=== PATIENT | male | born 1970 | race Caucasian/White ===

== ENCOUNTER 2021-04-08 19:47 | Emergency (ER) | payer OTHER ==
[2021-04-08] MEDS ORDERED: Famotidine 20 MG Tab PO ONE (20:56)
[2021-04-08] MEDS ORDERED: Pantoprazole 80 MG in Sodium Chloride 0.9% 20 ML IVPUSH ONE (20:57)
[2021-04-08 21:58] LABS: BLOOD UREA NITROGEN,BUN 14 mg/dL (7.0-18.0); CARBON DIOXIDE,CO2 23.7 mmol/L (21.0-32.0); CHLORIDE,CL 101 mmol/L (98-107); GLUCOSE RANDOM 105 mg/dL (74-106); POTASSIUM,K 3.6 mmol/L (3.5-5.1); SODIUM,NA 137 mmol/L (136-148)
[2021-04-08] MEDS ORDERED: Iopamidol 755 MG/ML 500 ML Multipack Bottle IVPUSH STA (22:43)
--- NOTE | 2021-04-08 23:29 | CT ---
INDICATION: Hematochezia. COMPARISON: None. TECHNIQUE: Routine axial CT images of the abdomen and pelvis following the uneventful administration of IV contrast. Sagittal and coronal reformatted series were also generated and reviewed. - Total exam DLP 613 mGy-cm. FINDINGS: The lower chest is unremarkable. - The liver, gallbladder, pancreas, spleen and adrenal glands are unremarkable. Symmetric enhancement of the kidneys. No hydronephrosis. Normal caliber aorta. No suspicious abdominal or pelvic lymphadenopathy. - No bowel obstruction or ascites. The appendix is normal. Few scattered colonic diverticula. No focal inflammatory change, perforation or abscess. - Urinary bladder is partially distended, but otherwise unremarkable. Prostate seminal vesicles are within normal limits. No pelvic mass or free fluid. - Degenerative disc disease at L5-S1, to a lesser extent L4-5. No acute or aggressive osseous findings. IMPRESSION: 1. No acute findings in the abdomen or pelvis. No specific CT abnormality to explain the patient`s reported symptoms. 2. Given the provided history, recommend follow-up colonoscopy. 3. Other findings, as above. Dictated by Kal Robledo MD @ 04/08/2021 11:27:31 PM Please note that all CT scans at this facility use dose modulation, iterative reconstruction, and/or weight-based dosing when appropriate to reduce radiation dose to as low as reasonably achievable. Dictated by: Kal Robledo MD @ 04/08/2021 23:27:40 (Electronically Signed)
--- NOTE | 2021-04-09 00:21 | EDM.PDOC ---
ED HPI GENERAL MEDICAL PROBLEM - General Chief Complaint: Gastrointestinal Problem Stated Complaint: BLOODY STOOL Time Seen by Provider: 04/08/21 20:58 - History of Present Illness INITIAL COMMENTS - FREE TEXT/NARRATIVE: CHIEF COMPLAINT(S): Bloody stool HISTORY OF PRESENT ILLNESS: This is a 62-year-old man with a past medical history of hypertension and tobacco use disorder with a [id number] history who comes to the emergency department with a chief complaint of bloody stool. The patient states that off-and-on for the last 4 years he has been experiencing bloody stool. He states that for the last 3 days he has been experiencing bloody stool which she describes as bright red. He states that there was some mild darkness but it is never been black. He states that he feels mildly dizzy but denies any chest pain or shortness of breath. He denies any abdominal pain but states that he always has chronic lower back pain. He denies any history of hemorrhoids and has never had a colonoscopy before. He states that he has never been evaluated for his bleeding because it seems to stop on its own. He denies any weight loss or night sweats. He denies any other symptoms. REVIEW OF SYSTEMS: Constitutional: Denies fever, chills. Eyes: Denies eye pain Ears, Nose, Mouth, & Throat: Denies earache Cardiovascular: Denies chest pain Respiratory: Denies shortness of breath Gastrointestinal: Positive for bright red bloody stool. Denies Nausea, vomiting, diarrhea, melena Genitourinary: Denies hematuria Skin:Denies a rash MSK: Positive for chronic lower back pain Neurological: Denies blurred vision Psychiatric: Denies depression PAST MEDICAL HISTORY: As per history of present illness and as reviewed below otherwise noncontributory. SURGICAL HISTORY: As per history of present illness and as reviewed below otherwise noncontributory. SOCIAL HISTORY: As per history of present illness and as reviewed below otherwise noncontributory. FAMILY HISTORY: As per history of present illness and as reviewed below otherwise noncontributory. EXAMINATION OF ORGAN SYSTEMS/BODY AREAS: Constitutional: Blood pressure is 137/85, heart rate 91, respiratory rate 18 with an oxygen saturation of 97% on room air. Temperature 36.9 General: Well-appearing man who is in no acute distress Psychiatric: Appropriate mood and affect. Eyes: No scleral icterus or conjunctival erythema ENMT: Moist mucous membranes. No pharyngeal erythema Cardiovascular: Regular, rate, and rhythm. No gallops, murmurs, or rubs. Bilateral upper extremity pulses symmetric and intact. No peripheral edema. No JVD. Respiratory: Lungs clear to auscultation bilaterally. No wheezes, rales, or rhonchi. Gastrointestinal: Soft, non-tender, non-distended. Normoactive bowel sounds no rebound or guarding. Rectal examination was performed with RN node js developer in presence. There was no evidence of every hemorrhoids or hemorrhoidal bleeding. Stool was brown and guaiac negative. Genitourinary: No suprapubic tenderness Musculoskeletal: Normal range of motion. Skin: No lesions or abrasions. Neurological: Alert, GCS 15 MEDICAL DECISION MAKING AND COURSE IN THE ED WITH INTERPRETATION/REVIEW OF DIAGNOSTIC STUDIES: This is a 50-year-old man without any significant past medical history other than hypertension and tobacco use disorder who comes to the emergency department with intermittent bright red bloody stool for the last 4 years which has been going on for the last 3 days who has no evidence of blood in his stool at this time with normal vital signs. At this time given his history will obtain labs including CBC, CMP, coags. Will obtain a CT abdomen pelvis to evaluate for diverticular bleeding versus diverticulitis. I did have a discussion with the patient that if our work-up was negative he would need to follow-up with a general surgeon to perform a colonoscopy. He was amenable to this plan. I did provide the patient with pantoprazole and famotidine. Laboratory: CBC reveals a leukocytosis of 12.42 otherwise unremarkable. INR is normal. CMP is normal. Covid is negative. The radiological images were viewed by myself along with reading the report from the radiologist. CT abdomen pelvis does not reveal any acute intra-abdominal pathology. There is evidence of diverticuli without any evidence of diverticulitis. After imaging I did discuss results with the patient. At this time I do believe he is likely having intermittent diverticular bleeding however he currently does not have any guaiac positive stool his stool is brown and not bright red and I do believe the patient is stable for discharge. I did discuss with the patient the need to follow-up for a colonoscopy given his recurrent bleeding. He was amenable discharge at this time and had no further questions. He was given strict return precautions DISPOSITION: The patient was discharged home in stable condition. The patient will follow up with general surgery within 3 to 5 days for colonoscopy scheduling CONDITION: Fair PROCEDURES: None FINAL IMPRESSION(S)/DIAGNOSES: 1. Acute bloody stool José Wisdom M.D. Bilateral Back Pain Score (Numeric/FACES): 2 - Related Data Allergies Allergy/AdvReac Type Severity Reaction Status Date / Time Sulfa (Sulfonamide Allergy Severe Swelling Verified 04/08/21 20:16 Antibiotics) Home Meds: Home Meds amLODIPine Bes/Olmesartan Med [Karl 10-40 MG] 04/08/21 [History] Past Medical History - Past Health History Medical/Surgical History: Denies Medical/Surgical History - Infectious Disease History Infectious Disease History: Reports: Chicken Pox, MRSA Social & Family History - Family History GI: Reports: Other (See Below) Other GI Family History: Fissures - Tobacco Use Tobacco Use Status *Q: Current Every Day Tobacco User Years of Tobacco use: 37 Packs/Tins Daily: 1 - Caffeine Use Caffeine Use: Reports: Coffee - Recreational Drug Use Recreational Drug Use: No ED ROS GENERAL - Review of Systems Review Of Systems: See Below ED EXAM, GENERAL - Physical Exam Exam: See Below Course - Vital Signs Last Recorded V/S: Last Vital Signs Temp 36.9 C 04/08/21 20:17 Pulse 84 04/09/21 00:18 Resp 17 04/09/21 00:18 BP 133/79 04/09/21 00:18 Pulse Ox 96 04/09/21 00:18 - Orders/Labs/Meds Labs: Laboratory Tests 04/08/21 04/08/21 04/08/21 Range/Units 21:20 21:20 21:20 WBC 12.42 H (4.0-11.0) K/uL RBC 4.77 (4.50-5.90) M/uL Hgb 15.6 (13.0-17.0) g/dL Hct 44.6 (38.0-50.0) % MCV 93.5 (80.0-98.0) fL MCH 32.7 H (27.0-32.0) pg MCHC 35.0 (31.0-37.0) g/dL RDW Std Deviation 44.1 (28.0-62.0) fl RDW Coeff of Isabella 13 (11.0-15.0) % Plt Count 255 (150-400) K/uL MPV 9.80 (7.40-12.00) fL Neut % (Auto) 49.5 (48.0-80.0) % Lymph % (Auto) 39.8 (16.0-40.0) % [place] % (Auto) 8.9 (0.0-15.0) % Eos % (Auto) 1.5 (0.0-7.0) % Baso % (Auto) 0.3 (0.0-1.5) % Neut # (Auto) 6.2 H (1.4-5.7) K/uL Lymph # (Auto) 4.9 H (0.6-2.4) K/uL [place] # (Auto) 1.1 H (0.0-0.8) K/uL Eos # (Auto) 0.2 (0.0-0.7) K/uL Baso # (Auto) 0.0 (0.0-0.1) K/uL Nucleated RBC % 0.0 /100WBC Nucleated RBCs # 0 K/uL INR 0.94 Sodium (136-148) mmol/L Potassium (3.5-5.1) mmol/L Chloride (98-107) mmol/L Carbon Dioxide (21.0-32.0) mmol/L BUN (7.0-18.0) mg/dL Creatinine (0.8-1.3) mg/dL Est Cr Clr Drug Dosing mL/min Estimated GFR (MDRD) ml/min Glucose (74-106) mg/dL Calcium (8.5-10.1) mg/dL Total Bilirubin (0.2-1.0) mg/dL AST (15-37) IU/L ALT (14-63) IU/L Alkaline Phosphatase (46-116) U/L Total Protein (6.4-8.2) g/dL Albumin (3.4-5.0) g/dL Globulin (2.6-4.0) g/dL Albumin/Globulin Ratio (0.9-1.6) SARS-CoV-2 RNA (LIDYA) NEGATIVE (NEGATIVE) Blood Type Antibody Screen 04/08/21 04/08/21 Range/Units 21:20 21:44 WBC (4.0-11.0) K/uL RBC (4.50-5.90) M/uL Hgb (13.0-17.0) g/dL Hct (38.0-50.0) % MCV (80.0-98.0) fL MCH (27.0-32.0) pg MCHC (31.0-37.0) g/dL RDW Std Deviation (28.0-62.0) fl RDW Coeff of Isabella (11.0-15.0) % Plt Count (150-400) K/uL MPV (7.40-12.00) fL Neut % (Auto) (48.0-80.0) % Lymph % (Auto) (16.0-40.0) % [place] % (Auto) (0.0-15.0) % Eos % (Auto) (0.0-7.0) % Baso % (Auto) (0.0-1.5) % Neut # (Auto) (1.4-5.7) K/uL Lymph # (Auto) (0.6-2.4) K/uL [place] # (Auto) (0.0-0.8) K/uL Eos # (Auto) (0.0-0.7) K/uL Baso # (Auto) (0.0-0.1) K/uL Nucleated RBC % /100WBC Nucleated RBCs # K/uL INR Sodium 137 (136-148) mmol/L Potassium 3.6 (3.5-5.1) mmol/L Chloride 101 (98-107) mmol/L Carbon Dioxide 23.7 (21.0-32.0) mmol/L BUN 14 (7.0-18.0) mg/dL Creatinine 1.0 (0.8-1.3) mg/dL Est Cr Clr Drug Dosing 92.26 mL/min Estimated GFR (MDRD) > 60.0 ml/min Glucose 105 (74-106) mg/dL Calcium 8.9 (8.5-10.1) mg/dL Total Bilirubin 0.7 (0.2-1.0) mg/dL AST 20 (15-37) IU/L ALT 30 (14-63) IU/L Alkaline Phosphatase 81 (46-116) U/L Total Protein 7.8 (6.4-8.2) g/dL Albumin 4.2 (3.4-5.0) g/dL Globulin 3.6 (2.6-4.0) g/dL Albumin/Globulin Ratio 1.2 (0.9-1.6) SARS-CoV-2 RNA (LIDYA) (NEGATIVE) Blood Type O POSITIVE Antibody Screen NEGATIVE Meds: Medications Discontinued Medications Generic Name Dose Route Start Last Admin Trade Name Freq PRN Reason Stop Dose Admin Famotidine 20 mg 04/08/21 20:56 04/08/21 21:25 Famotidine 20 Mg Tab PO 04/08/21 20:57 20 mg ONETIME ONE Administration Pantoprazole Sodium 80 mg/ 20 mls @ 420 mls/hr 04/08/21 20:57 04/08/21 21:25 Sodium Chloride IVPUSH 04/08/21 20:59 420 mls/hr ONETIME ONE Administration Iopamidol 100 ml 04/08/21 22:43 04/08/21 22:44 Iopamidol 755 Mg/Ml 500 Ml Multipack Bottle IVPUSH 04/08/21 22:44 100 ml ONETIME STA Administration Departure - Departure Time of Disposition: 00:19 Disposition: Home, Self-Care 01 Condition: Fair Clinical Impression: Bloody stool - Discharge Information *PRESCRIPTION DRUG MONITORING PROGRAM REVIEWED*: No *COPY OF PRESCRIPTION DRUG MONITORING REPORT IN PATIENT AXEL: No Instructions: Gastrointestinal Bleeding, Diverticulosis Referrals: Michael Swartz MD [Primary Care Provider] - Forms: ED Department Discharge Additional Instructions: You were evaluated today on an emergent basis. At this time all of your labs and imaging were essentially normal. You do have evidence of diverticulum in your colon. I do recommend that you contact general surgery or primary care physician to schedule an outpatient colonoscopy. As discussed if you have any pain, fever, worsening bleeding I would like you to return to the emergency department. [facility] - General Surgery Professional Building [address] [place] [address], [address] [place] [address] [facility] [address] [place] [id number] [id number] The patient is informed of any results of their evaluation and diagnostic workup and all questions are answered. They are given discharge instructions and return precautions. The patient is stable for discharge. The patient states they understand and agree with the plan and that they will return if their symptoms get worse or if they have any new concerns. The following information is given to patients seen in the emergency department who are being discharged to home. This information is to outline your options for follow-up care. We provide all patients seen in our emergency department with a follow-up referral. The need for follow-up, as well as the timing and circumstances, are variable depending upon the specifics of your emergency department visit. If you don't have a primary care physician on staff, we will provide you with a referral. We always advise you to contact your personal physician following an emergency department visit to inform them of the circumstance of the visit and for follow-up with them and/or the need for any referrals to a consulting specialist. The emergency department will also refer you to a specialist when appropriate. This referral assures that you have the opportunity for follow-up care with a specialist. All of these measure are taken in an effort to provide you with optimal care, which includes your follow-up. Under all circumstances we always encourage you to contact your private physician who remains a resource for coordinating your care. When calling for follow-up care, please make the office aware that this follow-up is from your recent emergency room visit. If for any reason you are refused follow-up, please contact the [facility] Emergency Department at and asked to speak to the emergency department charge nurse. Sepsis Event Note (ED) - Evaluation Sepsis Screening Result: No Definite Risk
== END 2021-04-09 00:31 | disposition home or self-care (01) ==
LOC: MW.ED 19:47
DX: K92.1 Melena (principal); Z72.0 Tobacco use; Z88.2 Allergy status to sulfonamides; Z20.822 Contact with and (suspected) exposure to COVID-19
CPT/HCPCS: 36415; 74177; 80053; 85025; 85610; 86850; 86900; 86901; 87635; 96374; 99285; A9270; C9113; Q9967; U0002

== ENCOUNTER 2021-05-02 10:47 | Day surgery (SDC) | payer OTHER ==
[~2021-05-02 10:47] MED LIST: Lactated Ringers 1,000 ML IV SCH
--- NOTE | 2021-05-02 11:52 | PCM.PREANE ---
Preanesthetic Assessment - Anesthesia/Transfusion/Family Hx Anesthesia History: Prior Anesthesia Without Reaction Transfusion History: No Prior Transfusion(s) - Review of Systems General: No Symptoms Pulmonary: No Symptoms Cardiovascular: No Symptoms Gastrointestinal: No Symptoms Neurological: No Symptoms Other: Reports: None - Physical Assessment NPO Status Date: 05/02/21 NPO Status Time: 00:00 Vital Signs: Last Vital Signs Temp 97.2 F 05/02/21 11:03 Pulse 84 05/02/21 11:03 Resp 14 05/02/21 11:03 BP 135/86 05/02/21 11:03 Pulse Ox 97 05/02/21 11:03 Height: 5 ft 10 in Weight: 209 lb ASA Class: 3 Mental Status: Alert & Oriented x3 Airway Class: Mallampati = 2 Dentition: Reports: Normal Dentition Thyro-Mental Finger Breadths: 3 Mouth Opening Finger Breadths: 3 ROM/Head Extension: Full Lungs: Clear to Auscultation, Normal Respiratory Effort Cardiovascular: Regular Rate, Regular Rhythm - Allergies Allergies/Adverse Reactions: Allergies Allergy/AdvReac Type Severity Reaction Status Date / Time Sulfa (Sulfonamide Allergy Severe Swelling Verified 04/26/21 08:30 Antibiotics) - Acknowledgements Anesthesia Type Planned: General Anesthesia Pt an Appropriate Candidate for the Planned Anesthesia: Yes Alternatives and Risks of Anesthesia Discussed w Pt/Guardian: Yes Pt/Guardian Understands and Agrees with Anesthesia Plan: Yes PreAnesthesia Questionnaire - Past Health History Medical/Surgical History: Denies Medical/Surgical History HEENT History: Reports: None Cardiovascular History: Reports: Hypertension Respiratory History: Reports: Sleep Apnea Other Respiratory History: does not use a CPAP Gastrointestinal History: Reports: Hiatal Hernia, Other (See Below) Other Gastrointestinal History: rectal bleeding Genitourinary History: Reports: None Musculoskeletal History: Reports: Arthritis, Back Pain, Chronic, Fracture Other Musculoskeletal History: hx fx fingers, collarbone & foot Neurological History: Reports: None Psychiatric History: Reports: None Endocrine/Metabolic History: Reports: Obesity/BMI 30+ Hematologic History: Reports: None Immunologic History: Reports: Other (See Below) Other Immunologic History: hx MRSA 8 to 10 years ago Oncologic (Cancer) History: Reports: None Dermatologic History: Reports: None - Infectious Disease History Infectious Disease History: Reports: MRSA Other Infectious Disease History: states had MRSA 8 to 10 years ago from cut on hand - Past Surgical History Head Surgeries/Procedures: Reports: None HEENT Surgical History: Reports: Other (See Below) Other HEENT Surgeries/Procedures: uvulectomy Cardiovascular Surgical History: Reports: None Respiratory Surgical History: Reports: None GI Surgical History: Reports: Ivanna Fundoplication Other GI Surgeries/Procedures: hx of laparoscopic ivanna fundoplication Male Surgical History: Reports: None Endocrine Surgical History: Reports: None Neurological Surgical History: Reports: None Musculoskeletal Surgical History: Reports: Arthroscopic Knee, Shoulder Surgery Other Musculoskeletal Surgeries/Procedures:: hx Lt RTCR Oncologic Surgical History: Reports: None Dermatological Surgical History: Reports: None - SUBSTANCE USE Tobacco Use Status *Q: Current Every Day Tobacco User Tobacco Use Within Last Twelve Months: Cigarettes - HOME MEDS Home Medications: Home Meds amLODIPine Besylate [Amlodipine Besylate] 10 mg PO DAILY 04/26/21 [History] - CURRENT (IN HOUSE) MEDS Current Meds: Current Medications Lactated Ringer's (Ringers, Lactated) 1,000 mls @ 125 mls/hr IV ASDIRECTED [facility] Last Admin: 05/02/21 11:10 Dose: 125 mls/hr Documented by:
[2021-05-02] MEDS ORDERED: fentaNYL 100 MCG/2 ML SDV ONE (12:28)
[2021-05-02] MEDS ORDERED: Propofol 200 MG/20 ML SDV ONE (12:39)
--- NOTE | 2021-05-02 13:24 | PCM.OPNOTE ---
- General Post-Op/Procedure Note Date of Surgery/Procedure: 05/02/21 Operative Procedure(s): Colonoscopy with cold sigmoid colon polypectomy 3. Pre Op Diagnosis: Rectal bleeding. CT diagnosis of diverticulosis. Post-Op Diagnosis: Proximal, mid and distal sigmoid colon polyps. No acute diverticular changes were noted on examination today. Anesthesia Technique: MAC (ASA III) Primary Surgeon: Josafat Rosas Condition: Good Free Text/Narrative:: DICTATION [id number] CPT CODE [id number]
--- NOTE | 2021-05-02 13:28 | PCM48HPAN ---
Post Anesthesia Note - EVALUATION WITHIN 48HRS OF ANESTHETIC Patient Participated in Evaluation: Yes Respiratory Function Stable: Yes Airway Patent: Yes Cardiovascular Function Stable: Yes Hydration Status Stable: Yes Pain Control Satisfactory: Yes Nausea and Vomiting Control Satisfactory: Yes Mental Status Recovered: Yes Vital Signs: Last Vital Signs Temp 97.2 F 05/02/21 11:03 Pulse 84 05/02/21 11:03 Resp 14 05/02/21 11:03 BP 135/86 05/02/21 11:03 Pulse Ox 97 05/02/21 11:03
--- NOTE | 2021-05-02 13:28 | PCM.POSTAN ---
POST ANESTHESIA ASSESSMENT - MENTAL STATUS Mental Status: Alert, Oriented - VITAL SIGNS Vital Signs: Last Vital Signs Temp 97.2 F 05/02/21 11:03 Pulse 84 05/02/21 11:03 Resp 14 05/02/21 11:03 BP 135/86 05/02/21 11:03 Pulse Ox 97 05/02/21 11:03 - RESPIRATORY Respiratory Status: Respiratory Rate WNL, Airway Patent, O2 Saturation Stable - CARDIOVASCULAR CV Status: Pulse Rate WNL, Blood Pressure Stable - GASTROINTESTINAL GI Status: No Symptoms - POST OP HYDRATION Hydration Status: Adequate & Stable
[2021-05-02] MEDS ORDERED: Lactated Ringers 1,000 ML IV SCH (13:30)
--- NOTE | 2021-05-02 14:53 | OR ---
SURGEON: Josafat Rosas M.D. DATE OF PROCEDURE: 05/02/2021 OPERATION PERFORMED: Colonoscopy with cold sigmoid colon polypectomy x3. PRIMARY SURGEON: Josafat Rosas M.D. ANESTHESIA: MAC. ASA CLASSIFICATION: III. PREOPERATIVE DIAGNOSES: 1. Recent episode of rectal bleeding. 2. CT diagnosis of sigmoid diverticulosis. POSTOPERATIVE DIAGNOSIS: Sigmoid polyps x3 with 1 polyp from the proximal sigmoid colon, 1 from the mid and 1 from the distal. No acute diverticular changes were noted. DESCRIPTION OF PROCEDURE: The patient was taken to the endoscopy room and positioned on the endoscopy table in the left lateral decubitus position. Time-out was called for appropriate identification of the patient and procedure. Monitored anesthesia care was provided. The colonoscope was inserted into the rectum and advanced with minimal difficulty to the cecum. The cecum was identified by internal landmarks and external pressure. The colonoscope was retroflexed to visualize the ascending colon from below, then straightened and slowly withdrawn. The cecum, ascending colon, hepatic flexure, transverse colon, splenic flexure, and descending colon showed no tumors, polyps, diverticula, or angiodysplastic changes. The patient did have 3 small polyps in the sigmoid colon, 1 proximally, 1 mid, and 1 distal. These were all removed and sent for separate histologic analysis. No acute diverticular changes were noted. There was no evidence of inflammation or other rectal bleeding. The colonoscope was then withdrawn to the rectum and retroflexed to visualize the anal orifice from above. No tumors or polyps were seen and there were no acute hemorrhoidal changes. The colonoscope was then straightened, the rectum aspirated, and the colonoscope removed. The patient tolerated the procedure well and was taken to recovery room in satisfactory condition. ERIKA / KEITH /[id number]
== END 2021-05-02 13:57 | disposition home or self-care (01) ==
LOC: MW.SDS 10:47
PROVIDERS: ATTEND Surgery
DX: K63.5 Polyp of colon (principal); K57.31 Diverticulosis of large intestine without perforation or abscess with bleeding; I10 Essential (primary) hypertension; F17.210 Nicotine dependence, cigarettes, uncomplicated; E66.9 Obesity, unspecified; Z88.2 Allergy status to sulfonamides; Z79.899 Other long term (current) drug therapy; Z98.890 Other specified postprocedural states; Z68.30 Body mass index [BMI] 30.0-30.9, adult
CPT/HCPCS: 45380; J2704; J3010; J7120; 00812

== ENCOUNTER 2022-11-24 12:13 | Emergency (ER) | payer OTHER | END 2022-11-24 14:13 | disposition home or self-care (01) | LOC: MW.ED 12:13 | DX: S63.502A Unspecified sprain of left wrist, initial encounter (principal); I10 Essential (primary) hypertension; F17.210 Nicotine dependence, cigarettes, uncomplicated; E66.9 Obesity, unspecified; Z68.31 Body mass index [BMI] 31.0-31.9, adult; Z88.2 Allergy status to sulfonamides; Z79.899 Other long term (current) drug therapy; V00.121A Fall from non-in-line roller-skates, initial encounter; Y93.51 Activity, roller skating (inline) and skateboarding | CPT/HCPCS: 73110-26-LT; 73110-LT; 73130-26-LT; 73130-LT; 99283; 99284 ==

== ENCOUNTER 2023-08-25 13:58 | Emergency (ER) | payer OTHER | END 2023-08-25 14:28 | disposition home or self-care (01) | LOC: MW.ED 13:58 | DX: L03.211 Cellulitis of face (principal); L02.01 Cutaneous abscess of face; I10 Essential (primary) hypertension; F17.210 Nicotine dependence, cigarettes, uncomplicated; E66.9 Obesity, unspecified; Z86.16 Personal history of COVID-19; Z79.899 Other long term (current) drug therapy; Z88.2 Allergy status to sulfonamides; Z68.31 Body mass index [BMI] 31.0-31.9, adult | CPT/HCPCS: 10060; 99283; 99283-25 ==

== ENCOUNTER 2024-07-16 07:50 | Day surgery (SDC) | payer BC ==
[~2024-07-16 07:50] MED LIST changes: +Albuterol 0.083% 2.5 MG/3 ML Neb Soln NEB PRN; +HYDROmorphone 1 MG/ML Syringe IVPUSH PRN; -Lactated Ringers 1,000 ML IV SCH; +Metoclopramide 10 MG/2 ML SDV IVPUSH PRN; +Morphine 2 MG/ML SYRINGE IVPUSH PRN; +Naloxone 0.4 MG/ML SDV IVPUSH PRN; +Ondansetron 4 MG/2 ML SDV IVPUSH PRN; +Phenylephrine HCl In 0.9% NaCl 1 MG/10 ML Syringe IVPUSH PRN; +fentaNYL 50 MCG/ML SDV IVPUSH PRN
[2024-07-16] MEDS ORDERED: ceFAZolin 2 GM in Sodium Chloride 0.9% 50 ML IV ONE (08:00)
[2024-07-16] MEDS ORDERED: dexmedeTOMIDine HCl 200 MCG/2 ML SDV ONE (08:12)
[2024-07-16] MEDS ORDERED: Sodium Chloride 0.9% 20 ML ONE (08:12)
[2024-07-16] MEDS ORDERED: Bupivacaine 0.5% 30 ML SDV ONE (08:14)
[2024-07-16] MEDS: Lactated Ringers 1,000 ML IV SCH (08:20)
[2024-07-16] MEDS ORDERED: Propofol 200 MG/20 ML SDV ONE ×2 (08:33→09:55)
[2024-07-16] MEDS ORDERED: ceFAZolin 2 GM Vial ONE (09:43)
[2024-07-16] MEDS ORDERED: fentaNYL 100 MCG/2 ML SDV ONE (09:54)
== END 2024-07-16 11:30 | disposition home or self-care (01) ==
LOC: MW.SDS 07:50
PROVIDERS: ATTEND Orthopaedic Surgery
DX: G56.01 Carpal tunnel syndrome, right upper limb (principal); I10 Essential (primary) hypertension; E78.5 Hyperlipidemia, unspecified; F32.A Depression, unspecified; F17.210 Nicotine dependence, cigarettes, uncomplicated; Z79.899 Other long term (current) drug therapy
CPT/HCPCS: 64721; J0665; J0690; J2704; J3010; J7120; J3490

== ENCOUNTER 2024-11-28 21:59 | Emergency (ER) | payer BC ==
[2024-11-28] MEDS ORDERED: Sodium Chloride 0.9% 2.5 ML Syringe FLUSH PRN (22:12)
[2024-11-28] MEDS ORDERED: Sodium Chloride 0.9% 20 ML SDV IV PRN (22:12)
[2024-11-28] MEDS ORDERED: Sodium Chloride 0.9% 10 ML Syringe FLUSH PRN (22:12)
[2024-11-28 22:19] LABS: BASOPHILS ABSOLUTE AUTO 0.07 K/uL (0.00-0.20); BASOPHILS PERCENT AUTO 0.6 % (0.0-1.0); EOSINOPHILS PERCENT AUTO 2.4 % (0.0-6.0); HEMATOCRIT 46.1 % (42.0-52.0); HEMOGLOBIN 16.1 g/dL (14.0-18.0); IMMATURE GRAN ABSOLUTE AUTO 0.02 K/uL (0.00-0.05); IMMATURE GRAN PERCENT AUTO 0.2 % (0.0-0.4); LYMPHOCYTES ABSOLUTE AUTO 5.33 K/uL (1.00-4.80); LYMPHOCYTES PERCENT AUTO 42.6 % (24.0-44.0); MEAN CORPUSCULAR HEMOGLOBIN 32.1 pg (28.0-32.0); MEAN CORPUSCULAR HGB CONC 34.9 g/dL (32.0-36.0); MEAN PLATELET VOLUME 9.5 fL (9.4-12.4); MONOCYTES ABSOLUTE AUTO 1.12 K/uL (0.00-0.80); MONOCYTES PERCENT AUTO 8.9 % (0.0-8.0); NEUTROPHILS ABSOLUTE AUTO 5.68 K/uL (1.80-7.70); NEUTROPHILS PERCENT AUTO 45.3 % (41.0-71.0); PLATELET COUNT,PLT 244 K/uL (150-400); RED BLOOD CELL COUNT 5.01 M/uL (4.52-5.90); WHITE BLOOD CELL COUNT,WBC 12.52 K/uL (3.9-11.3)
[2024-11-28] MEDS: Nitroglycerin 0.4 MG Tab.SL SL PRN (22:20)
[2024-11-28] MEDS: Aspirin 81 MG Tab.Chew PO ONE (22:20)
[2024-11-28 22:32] LABS: INR 0.97 (0.86-1.11); PTT,PARTIAL THROMBOPLSTIN TIME 28.5 SEC (23.9-30.7)
[2024-11-28 23:05] LABS: A/G RATIO 1.4 (0.9-1.6); ALANINE AMINOTRANSFERASE,ALT 32 IU/L (14-63); ALBUMIN 4.1 g/dL (3.4-5.0); ALKALINE PHOSPHATASE 88 U/L (46-116); ASPARTATE AMNIOTRANSFERASE,AST 24 IU/L (15-37); BILIRUBIN TOTAL 0.7 mg/dL (0.2-1.0); BLOOD UREA NITROGEN,BUN 23 mg/dL (7.0-18.0); CARBON DIOXIDE,CO2 26.9 mmol/L (21.0-32.0); CHLORIDE,CL 103 mmol/L (98-107); CREATININE 1.3 mg/dL (0.8-1.3); GLUCOSE RANDOM 132 mg/dL (74-106); POTASSIUM,K 3.7 mmol/L (3.5-5.1); PRO B-TYPE NATRIUR PEPT,BNPPRO 38 pg/mL (0-125); PROTEIN TOTAL,TP 7.1 g/dL (6.4-8.2); SODIUM,NA 140 mmol/L (136-148)
[2024-11-28 23:44] LABS: ESTIMATED GFR 66 mL/min (>60)
[2024-11-29] MEDS: Heparin Sodium 5,000 Units/ML Vial IVPUSH ONE (00:14)
[2024-11-29] MEDS: Clopidogrel 75 MG Tab PO ONE (00:14)
[2024-11-29] MEDS: Heparin Sodium/0.45% NaCl 25,000 UNITS/250 ML BAG IV SCH (00:16)
[2024-11-29] MEDS: Nitroglycerin/D5W 25 MG/250 ML BOTTLE IV PRN (00:17)
== END 2024-11-29 04:52 ==
LOC: MW.ED 21:59
DX: I21.4 Non-ST elevation (NSTEMI) myocardial infarction (principal); I10 Essential (primary) hypertension; I25.2 Old myocardial infarction; E66.9 Obesity, unspecified; M19.90 Unspecified osteoarthritis, unspecified site; F17.200 Nicotine dependence, unspecified, uncomplicated; Z88.2 Allergy status to sulfonamides; Z79.899 Other long term (current) drug therapy; Z79.02 Long term (current) use of antithrombotics/antiplatelets
CPT/HCPCS: 36415; 71045; 80053; 83880; 84484; 85025; 85610; 85730; 93005; 96365; 96366; 96368; 99285; A9270; J1644; J2305; 93010

== ENCOUNTER 2025-04-01 11:19 | Emergency (ER) | payer BC ==
[2025-04-01] MEDS ORDERED: Sodium Chloride 0.9% 10 ML Syringe FLUSH PRN (12:17)
[2025-04-01] MEDS ORDERED: Sodium Chloride 0.9% 2.5 ML Syringe FLUSH PRN (12:17)
[2025-04-01 12:33] LABS: BASOPHILS ABSOLUTE AUTO 0.05 K/uL (0.00-0.20); BASOPHILS PERCENT AUTO 0.6 % (0.0-1.0); EOSINOPHILS ABSOLUTE AUTO 0.09 K/uL (0.00-0.45); EOSINOPHILS PERCENT AUTO 1.0 % (0.0-6.0); IMMATURE GRAN ABSOLUTE AUTO 0.04 K/uL (0.00-0.05); IMMATURE GRAN PERCENT AUTO 0.5 % (0.0-0.4); LYMPHOCYTES ABSOLUTE AUTO 2.02 K/uL (1.00-4.80); LYMPHOCYTES PERCENT AUTO 23.0 % (24.0-44.0); MEAN PLATELET VOLUME 9.0 fL (9.4-12.4); MONOCYTES ABSOLUTE AUTO 0.92 K/uL (0.00-0.80); MONOCYTES PERCENT AUTO 10.5 % (0.0-8.0); NEUTROPHILS ABSOLUTE AUTO 5.67 K/uL (1.80-7.70); NEUTROPHILS PERCENT AUTO 64.4 % (41.0-71.0); NRBC ABSOLUTE 0.00 K/uL (0.00-0.02); NRBC PERCENT 0.0 /100WBC (0.0-0.2); PLATELET COUNT,PLT 236 K/uL (150-400); RED BLOOD CELL COUNT 4.89 M/uL (4.52-5.90); WHITE BLOOD CELL COUNT,WBC 8.79 K/uL (3.9-11.3)
[2025-04-01 12:48] LABS: INR 0.97 (0.86-1.11); PTT,PARTIAL THROMBOPLSTIN TIME 26.1 SEC (23.9-30.7)
[2025-04-01 13:00] LABS: A/G RATIO 1.2 (0.9-1.6); ALANINE AMINOTRANSFERASE,ALT 49.0 IU/L (14-63); ASPARTATE AMNIOTRANSFERASE,AST 27.0 IU/L (15-37); BILIRUBIN TOTAL 0.8 mg/dL (0.2-1.0); BLOOD UREA NITROGEN,BUN 16.0 mg/dL (7.0-18.0); CARBON DIOXIDE,CO2 27.4 mmol/L (21.0-32.0); CHLORIDE,CL 103.0 mmol/L (98-107); CREATININE 1.0 mg/dL (0.8-1.3); EST CRCL DRUG DOSING (CG) 88.21 mL/min; GLUCOSE RANDOM 110.0 mg/dL (74-106); POTASSIUM,K 4.3 mmol/L (3.5-5.1); PROTEIN TOTAL,TP 7.9 g/dL (6.4-8.2); SODIUM,NA 140.0 mmol/L (136-148)
[2025-04-01 13:06] LABS: ESTIMATED GFR 90.0 mL/min (>60)
== END 2025-04-01 16:04 | disposition home or self-care (01) ==
LOC: MW.ED 11:19
DX: I10 Essential (primary) hypertension (principal); I25.2 Old myocardial infarction; E66.9 Obesity, unspecified; Z79.899 Other long term (current) drug therapy; Z79.82 Long term (current) use of aspirin; Z88.2 Allergy status to sulfonamides; Z68.33 Body mass index [BMI] 33.0-33.9, adult; Z75.3 Unavailability and inaccessibility of health-care facilities
CPT/HCPCS: 36415; 71045; 80053; 83735; 84484; 85025; 85610; 85730; 93005; 99284; A9270